=== PATIENT | male | born 1980 | race Two or more races ===

== ENCOUNTER 2017-12-03 22:37 | Emergency (ER) | payer OTHER ==
[~2017-12-03] VITALS: Ht 190.5 cm; Wt 95.7 kg
[2017-12-03] MEDS ORDERED: KETOROLAC TROMETHAMINE 30 MG/ML VIAL IV STA (23:32)
[2017-12-03] MEDS ORDERED: POTASSIUM CHLORIDE 20 MEQ TAB CR PO STA (23:58)
[2017-12-04 00:57] VITALS: BP 149/80
== END 2017-12-04 01:00 | disposition home or self-care (01) ==
LOC: EEVIPCON 22:37 → FSED 22:37
DX: R07.89 Other chest pain (principal); R94.31 Abnormal electrocardiogram [ECG] [EKG]; F41.1 Generalized anxiety disorder; E87.6 Hypokalemia
CPT/HCPCS: 71046; 80053; 81003; 82553; 84484; 85025; 93005; 99283; J1885